=== PATIENT | female | born 1985 | race Caucasian/White ===

== ENCOUNTER 2023-08-11 09:27 | Day surgery (SDC) | payer BC, MEDICAID, SELFPAY ==
[2023-08-11] VITALS (8 sets, daily range): BP systolic 109–150; BP diastolic 76–90; PULSE 55–76; RESP 15–17; TEMP 36.1–36.7; O2SAT 98–100; BMI 36.8
--- NOTE | 2023-08-11 00:50 | W.PM.OPSFHP ---
Same Day Surgery H&P Indication for Procedure/HPI DATE OF PROCEDURE: August 11, 2023 CHIEF COMPLAINT/INDICATIONFOR SURGICAL PROCEDURE: retained and malpositioned intrauterine device PREOP DIAGNOSIS: retained and malpositioned intrauterine device PLANNED PROCEDURE: Operation Date: 08/11/23 10:50 Proposed Procedures p Hysteroscopy 75062, Intrauterine device removal 30165 T83.32XA(Not Applicable) - Edwardo Ross MD s Removal Of Interuterine Device(Not Applicable) - Edwardo Ross MD 37 y.o. A5 Has mirena intrauterine device in place Had attempts to remove IUD at another clinic, had much discomfort during the procedure, was told the IUD is ?stuck? Now scheduled for hysteroscopic removal of intrauterine device Medications/Allergies* Home Medications Medication Instructions Recorded Confirmed Type levonorgestrel 21 mcg/24 hours (8 21 mcg intrauterine DIRECTED 08/03/23 08/10/23 History yrs) 52 mg intrauterine device (Mirena) levothyroxine 25 mcg capsule 25 mcg PO DAILY 08/03/23 08/10/23 History Allergies/Adverse Reactions Allergy/AdvReac Type Severity Reaction Status Date / Time hydrocodone Allergy Unknown ADR-Vomitin Verified 08/10/23 09:31 g Pertinent History/Comorbid Conditions* Family History (Updated 08/03/23 @ 14:21 by Hue Eli LPN) Thyroid disease Mother Sister Denies family history of Colon cancer Ovarian cancer Prostate cancer Diabetes Heart disease Breast cancer Hypertension Uterine cancer Stroke Pertinent Exam Findings alert, oriented x 3, clear to auscultation bilaterally and regular rate & rhythm Recommendations Surgery/Procedure today Coding Level of Care Code Acute Code for Chg Fwd Time Spent (min) 20
[2023-08-11 09:46] LABS: OR HCG Qualitative Urine Negative (Negative)
[2023-08-11] MEDS: sodium chloride 0.9% 1,000 ML 30 ML IV (09:54)
--- NOTE | 2023-08-11 10:30 | W.PM.OPSUD ---
Surgery/Procedure H&P Update DATE OF PROCEDURE: August 11, 2023 DATE H&P PERFORMED: 08/11/23 H&P UPDATE INFORMATION: I have reviewed H&P completed within last 30 days, I have examined patient prior to procedure and No changes to prior documentation PREOP DIAGNOSIS: retained and malpositioned mirena intrauterine device PLANNED PROCEDURE: Operation Date: 08/11/23 10:50 Proposed Procedures p Hysteroscopy 97750, Intrauterine device removal 25591 T83.32XA(Not Applicable) - Edwardo Ross MD s Removal Of Interuterine Device(Not Applicable) - Edwardo Ross MD
--- NOTE | 2023-08-11 10:40 | ANES.PREANE2 ---
Pre-Anesthetic Assessment Height/Weight: Height 1.73 m Weight 109.769 kg Temp Pulse Resp BP Pulse Ox O2 Del Method 98.1 F 55 L 16 150/89 98 Room Air 08/11/23 09:38 08/11/23 09:38 08/11/23 09:38 08/11/23 09:38 08/11/23 09:38 08/11/23 09:38 Preop Diagnosis: retained and malpositioned mirena intrauterine device Operation Date: 08/11/23 10:50 Proposed Procedures p Hysteroscopy 35564, Intrauterine device removal 53234 T83.32XA(Not Applicable) - Edwardo Ross MD s Removal Of Interuterine Device(Not Applicable) - Edwardo Ross MD Familial anesthetic complications: none Was Beta Brigid taken within 24 hours: N/A Was Clonidine taken within 24 hours: N/A Last intake: Intake Last Liquid Date 08/10/23 Last Liquid Time 18:00 Last Solid Date 08/10/23 Last Solid Time 18:00 Social No alcohol and No tobacco Exam alert, oriented x 3, clear to auscultation bilaterally and regular rate & rhythm Airway Submandibular: within normal limits Cervical ROM: within normal limits Mallampati: Class II Dentition: full Metabolic Morbid Obesity and Thyroid Disease Anesthetic Plan ASA status: 2 Anesthesia: General Medications/Allergies Home Medications Medication Instructions Recorded Confirmed Last Taken Type levonorgestrel 21 mcg/24 hours (8 21 mcg intrauterine DIRECTED 08/03/23 08/10/23 08/25/20 History yrs) 52 mg intrauterine device (Mirena) levothyroxine 25 mcg capsule 25 mcg PO DAILY 08/03/23 08/11/23 08/11/23 History Allergies Allergy/AdvReac Type Severity Reaction Status Date / Time hydrocodone Allergy Unknown ADR-Vomitin Verified 08/10/23 09:31 g Current Medications Generic Name Dose Route Start Last Admin Trade Name Freq PRN Reason Stop Dose Admin Sodium Chloride 1,000 mls @ 30 mls/hr 08/11/23 09:30 08/11/23 09:54 Sodium Chloride 0.9% IV 08/12/23 09:29 30 mls/hr .Q24H BART Administration PFSH Anesthesia Family History Mother Thyroid disease Sister Thyroid disease Denies family history of Colon cancer Ovarian cancer Prostate cancer Diabetes Heart disease Breast cancer Hypertension Uterine cancer Stroke Data Anesthesia Cardiac Studies: No Data to Display
--- NOTE | 2023-08-11 11:45 | P.OP_ITS ---
Operative Report Date of procedure: August 11, 2023 Pre-op diagnosis: retained and malpositioned mirena intrauterine device Post-op diagnosis: same Post-op findings: mirena intrauterine device partially extruded from cervix. One arm of device embedded into sidewall of cervix. Otherwise, the device was removed complete and intact. Normal endometrial cavity. Procedure done: removal of malpositioned mirena intrauterine device hystersocopy Implants: none Specimens removed/disposition: mirena intrauterine device removed, discarded. Photos of complete and intact device taken prior to disposal. Surgeon: Edwardo Ross MD Anesthesia: MAC Estimated blood loss (mL): 0 Complications: none Condition: stable Disposition: PACU Brief History: 37 y.o. had attempted mirena intrauterine device removal at outside clinic. The device was noted to be stuck and was not able to be removed. Patient was therefore scheduled for hysteroscopic removal of intrauterine device. Procedure: Informed consent was signed. The patient was taken to the operating room and placed supine on the table. General anesthesia was induced. The patient was placed in dorsolithotomy position. The perineum was prepped and draped in the usual fashion. A speculum was placed in the vagina. The mirena intrauterine device was noted to be partially extruded from the cervix. One arm of the device was noted to be embedded deeply in the cervical sidewall. Using gentle traction and counter- traction, the device was able to be removed complete and intact. Photos of the device was taken and placed in the chart prior to disposal. The uterus was sounded to 8 cm. The hysteroscope was placed into the endometrial cavity. Normal endometrial cavity was seen with minimal endometrial tissue. No polyps / fibroids were seen. No sampling was done. All instruments were then removed from the uterus, cervix, and vagina. No bleeding was seen. The patient was then placed supine, awakened, and taken to the PACU. postop condition: stable EBL: none Sponge and instrument counts were correct x two
--- NOTE | 2023-08-11 13:24 | ANE.PACU2 ---
Inpatient post-anesthesia follow up: Airway intact: Yes Vital signs: Temperature 97.8 F Pulse Rate 59 Respiratory Rate 15 Blood Pressure 134/84 Pulse Oximetry 100 Oxygen Delivery Me thod Room Air Oxygen Flow Rate Fraction of Inspir ed Oxygen Hydration adequate: Yes Nausea and vomiting: No Pain level: 2 Mental status: Baseline
== END 2023-08-11 12:45 | disposition home or self-care (01) ==
PROVIDERS: Family Provider Counselor Professional; PCP Nurse Practitioner Family; Visit Provider Obstetrics & Gynecology
PROC: 0UJD8ZZ Inspection of Uterus and Cervix, Via Natural or Artificial Opening Endoscopic (ICD-10-PCS; CPT 58555; principal; 2023-08-11 10:40)
PROC: (CPT 58301; 2023-08-11 10:40)
DX: T83.89XA Other specified complication of genitourinary prosthetic devices, implants and grafts, initial encounter (principal); Y82.8 Other medical devices associated with adverse incidents; E66.01 Morbid (severe) obesity due to excess calories; Z68.36 Body mass index [BMI] 36.0-36.9, adult
CPT/HCPCS: 58562; 81025; 84703; J1100; J2405; J2704; J3010; J3490; J7030